=== PATIENT | female | born 1945 | race Caucasian/White ===

== ENCOUNTER → 2021-03-30 12:48 | Outpatient (CLI) | payer MEDICARE, SELFPAY ==
--- NOTE | 2021-03-30 13:48 | ST.MBS ---
Modified Barium Swallow - Patient Information Study Date: 03/30/21 Study Time: 13:00 Direct Billable Minutes: 100 Total Minutes procedure & reportin Diagnosis: Dysphagia, unspecified (R13.10) Referring Physician: Bay Ramirez Reason for Referral: Objectively assess swallow function and aspiration risk with history of narrowing of upper esophagus. Medical History: PMH: GERD, pneumonia (>3 years ago). The patient is an 75 year old female who has been referred for MBS study to further assess swallow function. Per patient, she has a narrowing of her esophagus that affects her ability to swallow. She reports that she had a wet vocal quality when eating and drinking prior to beginning GERD medication. Since she began taking the medication, she is able to eat a larger variety of foods and textures. She avoids difficult to chew items, as she only uses upper dentures. She denies coughing or choking with food or drink. She takes medications only by powder or crushed (opens capsules and eats with a puree texture). Current Diet Ordered: Regular textures / Thin liquids Dentition: Upper Dentures Mental Status: WNL Respiratory Status: Oxygenating on Room Air - Study Findings Consistencies: Thin Liquid, Thatcher Thick Liquid, Honey Thick Liquid, Pudding, Cookie - Penetration-Aspiration Scale Penetration-Aspiration Scale: OBJECTIVE ASSESSMENT OF SWALLOW FUNCTION (QUANTITATIVE ? PER TRIAL): PENETRATION / ASPIRATION SCALE (CORDON): 1 = does not enter airway 2 = enters airway/above vocal folds/ejected 3 = enters airway/above vocal folds/not ejected 4 = enters airway/contacts vocal folds/ejected 5 = enters airway/contacts vocal folds/not ejected 6 = enters airway/below vocal folds/ejected 7 = enters airway/below vocal folds/not ejected despite effort 8 = enters airway/below vocal folds/no effort VIDEOFLOROSCOPIC SCALE SCORE (CORDON): Grade I = aspiration of material that has penetrated into the laryngeal vestibule, intact cough reflex Grade II = aspiration < 10 % of the bolus, intact cough reflex Grade III = aspiration of < 10 % of the bolus, reduced cough reflex or aspiration of > 10 % of the bolus, intact cough reflex Grade IV = aspiration of > 10 % of the bolus, reduced cough reflex - Penetration-Aspiration Scale Score Thin Liquid via teaspoon Result: 1= does not enter airway Thin Liquid via teaspoon Trial 2 Result: 1= does not enter airway Thin Liquid via small single sip from cup Result: 1= does not enter airway Thin Liquid via sequential sips from cup Result: 2= enter airway/above vocal folds/ejected Thatcher Thick Liquid via small single sip from cup Result: 1= does not enter airway Honey Thick Liquid via small single sip from cup Result: 1= does not enter airway Pudding Result: 1= does not enter airway Cookie Result: 1= does not enter airway - Patient presented with piecemeal deglutition of 1/4 Mary Doone shortbread cookie and required 4 swallows to clear from oral cavity. Thin Liquid via single sip from straw Result: 1= does not enter airway - Patient required 3 swallows to clear pharyngeal residue. Thin Liquid via sequential sips from straw Result: 2= enter airway/above vocal folds/ejected - Oral Phase Labial Seal: Interlabial escape, no progression to anterior lip Tongue Control During Bolus Hold: Posterior escape of less than half of bolus Bolus Preparation/Mastication: Slow prolonged chewing/mashing with complete recollection Bolus Transport/Lingual Motion: Delayed initiation of tongue motion Oral Residue: Majority of bolus remaining - Piecemeal deglutition of 1/4 Mary Doone cookie, requiring 4 swallows to clear from oral cavity. - Pharyngeal Phase Initiation of Pharyngeal Swallow: Bolus head in pyriforms Soft Palate Elevation: Trace column of contrast/air between soft palate and pharyngeal wall Laryngeal Elevation: Partial superior movement thyroid cart/partial apprx aryt-epig petiole Anterior Hyoid Excursion: Partial anterior movement Epiglottic Movement: Partial inversion Laryngeal Vestibule Closure at Height of Swallow: Incomplete; narrow column of air/contrast in laryngeal vestibule Pharyngeal Stripping Wave: Present - complete Pharyngoesophageal Segment Opening: Parital distension and partial duration; parital obstruction of flow Tongue Base Retraction: Narrow column of contrast between tongue base & post. pharyngeal wall Pharyngeal Residue: Collection of residue within or on pharyngeal structures - Esophageal Phase Esophageal Clearance: Esophageal retention w/ retrograde flow below pharyngoesophageal seg. - Treatment Strategies Effects of treatment strategies attemped:: Decreased bolus size = Effective. Decreased bolus rate = Effective. Multiple swallows = Effective. - Diagnosis/Impression Diagnosis: Mild-mod oropharyngeal phase dysphagia, pharyngoesophageal dysphagia Impression: The oral phase is primarily marked by deficits in mastication likely due to patient only utilizing upper dentures. She presented with prolonged mastication and piecemeal deglutition of 1/4 of Mary Doone shortbread cookie. She presents with mild oral residues after the swallow. The patient also presented with reduced bolus control of thin liquid sips with posterior escape of greater than 1/2 of the bolus on certain trials, resulting in suboptimal bolus placement upon swallow onset. The pharyngeal phase is marked by moderate pharyngeal residue of both liquid and solid boluses, likely secondary to decreased anterior hyoid excursion, decreased duration of UES opening, and decreased tongue base retraction. She benefited from use of liquid wash and multiple swallows to effectively clear pharyngeal residues. She presented with penetration of sequential thin liquid sips via cup and straw with full ejection of contrast from the laryngeal vestibule. The esophageal phase of the swallow is marked by decreased opening and duration of opening of the UES, as well as a narrowing of the upper esophagus. The patient did have minimal retrograde flow of pudding bolus; however, the contrast remained well below the UES. 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 - Recommendations Diet: Regular Textures - Regular Easy to Chew Textures (IDDSI Level 7), Thin Liquids Compensatory Strategies: Small Bites - Bites one at a time., Small Sips - Sips one at a time., Slow Rate, Multiple Swallows, Alternate bites/solids and sips/liquids, Sitting upright, Remain sitting upright for 30 minutes after PO intake Recommend Repeat Modified Barium Swallow: TBD Need for Skilled Speech Therapy Services: Yes Comment: Will recommend the patient for outpatient speech therapy to address mild-moderate deficits in oropharyngeal function of swallow. Would consider the patient for oropharyngeal strengthening to improve anterior hyoid excursion, UES opening/duration, and tongue base retraction. The patient would benefit from continued education regarding recommended compensatory strategies to reduce her risk for aspiration. Recommended Referrals: GI Consult - Would recommend referral to GI physician. [employer]ODU[employer] MECH[employer] DESIGN ENGINEER recommended patient follow up with referring clinician, Dr. Ramirez, regarding management for narrowing of upper esophagus. Education Completed: 1. Described result of evaluation., 5. Patient demonstrates recommended strategies. - Status Active ST Patient: Active - Contact Information [facility] Speech Therapy:: Elli Chan M.A., [facility]-[employer] DES[employer] ENGINEER Speech Language Pathologist [facility] [address] [place] [address] [email or web address] [phone]
== END ==
PROVIDERS: Referring Provider Internal Medicine Gastroenterology; Visit Provider Internal Medicine Gastroenterology
DX: R13.10 Dysphagia, unspecified (principal)
CPT/HCPCS: 74230; 92611